=== PATIENT | female | born 1990 | race Caucasian/White ===

== ENCOUNTER 2017-08-11 09:06 | Emergency (ER) | payer OTHER ==
[~2017-08-11] VITALS: Ht 154.9 cm; Wt 54.4 kg
[2017-08-11 09:17] VITALS: BP 118/88
[2017-08-11] MEDS: ALUMINUM HYD/MAG/SIMETHICONE 30 ML UDC PO ONE (09:55)
[2017-08-11] MEDS: PANTOPRAZOLE 40 MG TABEC PO ONE (09:55)
[2017-08-11] MEDS: LIDOCAINE VISCOUS 2% 20 ML UDC PO ONE (09:55)
[2017-08-11 10:52] VITALS: BP 102/69
== END 2017-08-11 10:52 | disposition home or self-care (01) ==
LOC: MED 09:06
DX: K21.9 Gastro-esophageal reflux disease without esophagitis (principal)
CPT/HCPCS: 81002; 81025; 99284